=== PATIENT | male | born 1935 | race Caucasian/White ===

== ENCOUNTER → 2020-04-26 | Outpatient (CLI) | payer MEDICARE ==
--- NOTE | 2020-04-26 15:11 | XR ---
EXAMINATION TYPE: XR cervical spine comp DATE OF EXAM: 04/26/2020 TECHNIQUE: Frontal, lateral, oblique, and open mouth view of the cervical spine are obtained. HISTORY: S80.01XA COMPARISON: None FINDINGS: The cervical spine is visualized in its entirety from C1 thru the top of T1 level, there i s dextroconvex scoliosis centered in the upper thoracic spine without evidence of acute fracture or d islocation. The pre-vertebral soft tissue appears within normal limits. The C1-C2 articulation is w ithin normal limits on the open mouth view. Slight grade 1 anterolisthesis C3 on C4 and C4 on C5. Ve rtebral body heights are maintained. Mild to moderate disc space narrowing with severe anterior spurr ing C5-C6 level. Moderate disc space narrowing and mild to moderate spurring C6-C7 level. Suboptimal evaluation C7-T1 level. That acute swimmer's view. The oblique images value degraded by underlying sc oliosis. Overlying clothing material is present. Partial visualization of dual-lead pacemaker noted. IMPRESSION: As above.
== END | disposition home or self-care (01) ==
LOC: RADXRMAIN 14:38
PROVIDERS: ATTEND Internal Medicine Geriatric Medicine
DX: M99.71 Connective tissue and disc stenosis of intervertebral foramina of cervical region (principal); M43.12 Spondylolisthesis, cervical region; M41.84 Other forms of scoliosis, thoracic region; Z95.0 Presence of cardiac pacemaker
CPT/HCPCS: 72050

== ENCOUNTER 2021-02-24 09:20 | Inpatient (IN) | payer MEDICARE ==
[2021-02-24] MEDS ORDERED: KETOROLAC 15 MG/ML 1 ML VIAL IVP STA (10:06)
[2021-02-24] MEDS ORDERED: HYDROmorphone 0.5 MG/0.5 ML SYRINGE IVP STA (10:06)
[2021-02-24] MEDS ORDERED: methylPREDNISolone SOD SUCCI 125 MG/2 ML VIAL IV STA (10:06)
--- NOTE | 2021-02-24 10:16 | ED ---
General Adult HPI - General Chief complaint: Extremity Problem,Nontraumatic Stated complaint: left leg pain Time Seen by Provider: 02/24/21 09:25 Source: patient, EMS, RN notes reviewed, old records reviewed Mode of arrival: EMS Limitations: physical limitation - History of Present Illness Initial comments: This is an 85-year-old male who presents emergency Department complaining of left leg pain. Patient states been ongoing for about a week but getting progressively worse. Patient today bent over but her shoes and socks on and after that he was unable to ambulate without severe pain. Anytime the patient moves his legs he gets severe pain he also complains of some pain in the lower back or sacrum region. Patient denies any recent injury or fall. Patient denies any redness or swelling. Patient denies any fever or chills. - Related Data Home Medications Medication Instructions Recorded Confirmed Lovastatin [Mevacor] 20 mg PO HS 11/12/14 02/24/21 Aspirin EC [Ecotrin Low Dose] 81 mg PO DAILY 02/24/21 02/24/21 Cranberry Fruit Extract [Cranberry] 500 mg PO DAILY 02/24/21 02/24/21 Donepezil [Aricept] 5 mg PO HS 02/24/21 02/24/21 Ergocalciferol [Vitamin D2 (1250 1,250 mcg PO Q14D 02/24/21 02/24/21 Mcg = [id number] Iu)] Lisinopril-Hctz 10-12.5 mg 0.5 tab PO DAILY 02/24/21 02/24/21 [Zestoretic 10-12.5] Lovastatin [Mevacor] 20 mg PO HS 02/24/21 02/24/21 Manganese B-12 1 tab PO DAILY 02/24/21 02/24/21 Tamsulosin HCl [Flomax] 0.4 mg PO DAILY 02/24/21 02/24/21 Vitamin B-12 Gummie 1 tab PO DAILY 02/24/21 02/24/21 metFORMIN HCL 1,000 mg PO BID 02/24/21 02/24/21 Allergies Allergy/AdvReac Type Severity Reaction Status Date / Time No Known Allergies Allergy Verified 02/24/21 10:02 Review of Systems ROS Statement: Those systems with pertinent positive or pertinent negative responses have been documented in the HPI. ROS Other: All systems not noted in ROS Statement are negative. Past Medical History Past Medical History: Diabetes Mellitus, Hyperlipidemia, Osteoarthritis (OA) Additional Past Medical History / Comment(s): hyperlipidemia, diabetes mellitus type 2, osteoarthritis, vitamin D deficiency. History of Any Multi-Drug Resistant Organisms: None Reported Past Surgical History: Hernia Repair Additional Past Surgical History / Comment(s): Right foot surgery secondary to a crush injury, right hernia repair, colonoscopy about 4 years ago, bilateral cataract surgery, right glaucoma surgery with trabeculoplastyX2. Past Anesthesia/Blood Transfusion Reactions: No Reported Reaction Past Psychological History: No Psychological Hx Reported Past Alcohol Use History: None Reported Past Drug Use History: None Reported - Past Family History Father History Unknown: Yes Family Medical History: CVA/TIA (Father had a construction accident back to the age of 50 and he ended up dying at the age of 70 from CVA) Mother History Unknown: Yes Family Medical History: CVA/TIA (Mother at age of 70 from CVA.) Brother(s) Family Medical History: No Reported History (Patient has 3 half-brothers no major medical problems) Daughter(s) Family Medical History: No Reported History (3 daughters no major medical problems.) General Exam - General Exam Comments Initial Comments: GENERAL: Patient is well-developed and well-nourished. Patient is nontoxic and well-hydrated and is in severe distress when he moves his leg. ENT: Neck is soft and supple. No significant lymphadenopathy is noted. Oropharynx is clear. Moist mucous membranes. Neck has full range of motion without eliciting any pain. EYES: The sclera were anicteric and conjunctiva were pink and moist. Extraocular movements were intact and pupils were equal round and reactive to light. Eyelids were unremarkable. PULMONARY: Unlabored respirations. Good breath sounds bilaterally. No audible rales rhonchi or wheezing was noted. CARDIOVASCULAR: There is a regular rate and rhythm without any murmurs gallops or rubs. ABDOMEN: Soft and nontender with normal bowel sounds. SKIN: Skin is clear with no lesions or rashes and otherwise unremarkable. NEUROLOGIC: Patient is alert and oriented x3. Cranial nerves II through XII are grossly intact. Motor and sensory are also intact. Normal speech, volume and content. Symmetrical smile. MUSCULOSKELETAL: When patient tries to either bend his knee or hip he has severe pain and he screams out. However when I passively move his leg is hip or knee does not appear to hurt him. Patient does have some significant tenderness in the lower back and in the sacroiliac region. LYMPHATICS: No significant lymphadenopathy is noted PSYCHIATRIC: Normal psychiatric evaluation. Limitations: physical limitation Course Vital Signs 02/24/21 02/24/21 09:23 11:25 Temperature 98 F Pulse Rate 103 H 70 Respiratory 18 18 Rate Blood Pressure 132/78 131/72 O2 Sat by Pulse 97 96 Oximetry Medical Decision Making - Medical Decision Making Patient received Toradol Dilaudid and Solu-Medrol and his pain was just as bad as it was when he got here. Patient is comfortable lying still but as soon as he moves that left leg at all causes severe pain down the left leg. CAT scan of the lumbar spine showed some spinal stenosis questionable bladder mass and foramen narrowing. I spoke with Dr. Lopez and she agreed to admit I admitted the patient wrote admitting orders - Lab Data Result diagrams: 02/24/21 10:02/24/21 10: Lab Results 02/24/21 02/24/21 Range/Units 10:22 10:22 WBC 5.1 (3.8-10.6) k/uL RBC 4.71 (4.30-5.90) m/uL Hgb 14.4 (13.0-17.5) gm/dL Hct 42.2 (39.0-53.0) % MCV 89.5 (80.0-100.0) fL MCH 30.6 (25.0-35.0) pg MCHC 34.2 (31.0-37.0) g/dL RDW 12.9 (11.5-15.5) % Plt Count 166 (150-450) k/uL MPV 8.0 Neutrophils % 61 % Lymphocytes % 25 % Monocytes % 8 % Eosinophils % 2 % Basophils % 1 % Neutrophils # 3.1 (1.3-7.7) k/uL Lymphocytes # 1.3 (1.0-4.8) k/uL Monocytes # 0.4 (0-1.0) k/uL Eosinophils # 0.1 (0-0.7) k/uL Basophils # 0.0 (0-0.2) k/uL Sodium 136 L (137-145) mmol/L Potassium 4.2 (3.5-5.1) mmol/L Chloride 101 (98-107) mmol/L Carbon Dioxide 26 (22-30) mmol/L Anion Gap 9 mmol/L BUN 19 (9-20) mg/dL Creatinine 1.03 (0.66-1.25) mg/dL Est GFR (CKD-EPI)AfAm 76 (>60 ml/min/1.73 sqM) Est GFR (CKD-EPI)NonAf 66 (>60 ml/min/1.73 sqM) Glucose 150 H (74-99) mg/dL Calcium 9.6 (8.4-10.2) mg/dL Total Bilirubin 0.7 (0.2-1.3) mg/dL AST 27 (17-59) U/L ALT 21 (4-49) U/L Alkaline Phosphatase 59 (38-126) U/L Total Protein 6.6 (6.3-8.2) g/dL Albumin 3.8 (3.5-5.0) g/dL Disposition Clinical Impression: Intractable back pain, Sciatica, Bladder mass Disposition: ADMITTED IP TO THIS HOSP Referrals: Jimmy Lara MD [Primary Care Provider] - 1-2 days Time of Disposition: 12:04
[2021-02-24 10:55] LABS: Albumin 3.8 g/dL (3.5-5.0); Calcium 9.6 mg/dL (8.4-10.2); Potassium 4.2 mmol/L (3.5-5.1); Total Bilirubin 0.7 mg/dL (0.2-1.3); Total Protein 6.6 g/dL (6.3-8.2)
[2021-02-24 11:22] LABS: Basophils % (A) 1 %; Eosinophils # (A) 0.1 k/uL (0-0.7); Eosinophils % (A) 2 %; HCT 42.2 % (39.0-53.0); HGB 14.4 gm/dL (13.0-17.5); Lymphocytes # (A) 1.3 k/uL (1.0-4.8); Lymphocytes % (A) 25 %; MCH 30.6 pg (25.0-35.0); MCHC 34.2 g/dL (31.0-37.0); MCV 89.5 fL (80.0-100.0); Monocytes # (A) 0.4 k/uL (0-1.0); Monocytes % (A) 8 %; Neutrophils # (A) 3.1 k/uL (1.3-7.7); Neutrophils % (A) 61 %; Platelet Count 166 k/uL (150-450); RBC 4.71 m/uL (4.30-5.90); RDW 12.9 % (11.5-15.5); WBC 5.1 k/uL (3.8-10.6)
--- NOTE | 2021-02-24 11:29 | CT ---
EXAMINATION TYPE: CT lumbar spine wo con DATE OF EXAM: 02/24/2021 COMPARISON: None HISTORY: 85-year-old male Severe back and left leg pain TECHNIQUE: Contiguous axial scanning of the lumbar spine without IV contrast. Coronal and sagittal re constructions performed. CT DLP: 1001.9 mGycm Automated exposure control for dose reduction was used. FINDINGS: Vertebral body heights are preserved and alignment is maintained. [id number] multilevel degenerative disc disease. Variable disc bulging. Mild to moderate disc h eight loss at L5-S1. Mild vacuum at both L4-L5 and L5-S1. Endplate Schmorl's nodes are present at both L4-L5 and L5-S1. These may be somewhat acute to subacute along the superior L5 endplate, sagittal image 38. Advanced hypertrophic facet arthropathy throughout. Disc bulge and ligamentum flavum thickening contribute to moderate narrowing of the spinal canal at L 3-L4 and mild at L2-L3. Partially visualized abnormal soft tissue right posterior bladder wall measuring up to 5.2 x 3.0 cm. On the left, there is moderate neuroforaminal narrowing at L4/L5 and L5-S1. Mild additional levels. On the right, there is moderate neuroforaminal narrowing at L4-L5 and L5-S1. Mild additional levels. IMPRESSION: 1. PARTIALLY VISUALIZED MURAL BASED MASS RIGHT POSTERIOR BLADDER WALL MEASURING AT LEAST 5.2 X 3.0 CM . THIS COULD REPRESENT PARTIALLY VISUALIZED SEVERE BPH OR A UROTHELIAL NEOPLASM. RECOMMEND FURTHER CO RRELATION WITH URINALYSIS, URINE CYTOLOGY, AND UROLOGY FOLLOW-UP. 2. MODERATE MULTILEVEL SPONDYLOTIC CHANGE. DISC BULGE AND LIGAMENTUM FLAVUM THICKENING CONTRIBUTES TO MODERATE SPINAL CANAL STENOSIS AT L3-L4 AND MILD AT L2-L3. 3. SMALL ENDPLATE SCHMORL'S NODES AT L4-L5 AND L5-S1. THE AGE OF THESE SCHMORL'S NODES ARE INDETERMIN ATE AND MAY BE SOMEWHAT ACUTE TO SUBACUTE ALONG THE SUPERIOR L5 ENDPLATE. CORRELATE TO THE SITE OF PATIENT'S PAIN. 4. VARIABLE MILD TO MODERATE NEUROFORAMINAL STENOSES IN THE MID AND LOWER LUMBAR SPINE.
[2021-02-24] MEDS: DONEPEZIL 5 MG TAB PO SCH ×2 (13:06→21:37)
[2021-02-24] MEDS: LISINOPRIL-HCTZ 10-12.5 MG 1 EACH TAB PO SCH (13:08)
[2021-02-24] MEDS: HYDROmorphone 0.5 MG/0.5 ML SYRINGE IVP PRN ×3 (13:09→21:37)
[2021-02-24 13:10] LABS: Appearance,Urine Clear (Clear); Bacteria,Urine Rare /hpf; Bilirubin,Urine Negative (Negative); Blood,Urine Trace (Negative); Color,Urine Light Yellow; Glucose,Urine (UA) Negative (Negative); Ketones,Urine 1+ (Negative); Leukocyte Esterase,Urine Negative (Negative); Nitrite,Urine Negative (Negative); Protein,Urine Negative (Negative); RBC,Urine 4 /hpf (0-5); Squamous Epithelial Cell,Urine <1 /hpf (0-4); Urobilinogen,Urine <2.0 mg/dL (<2.0); WBC,Urine <1 /hpf (0-5)
--- NOTE | 2021-02-24 13:57 | P.HPIM ---
History of Present Illness H&P Date: 02/24/21 Chief Complaint: left leg pain HISTORY OF PRESENT ILLNESS This is an 79-year-old male one of Dr. 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 Patient has intermittent nerves pain originating from the back radiating to his thigh but has not been persistent. Patient was in extreme pain 10 out of 10 yesterday evening and decided to come to the ER since she was unable to mobilize or stand without any help. Patient has difficulty rolling in bed due to the extreme pain. Patient has been using cane for the past week. Vitals are stable with a temperature of 98 pulse 86 respiratory rate 18 blood pressure 147/83. Vitals are stable patient's WBC is 5.1 hemoglobin 14.4 sodium 136 potassium 4.2 BUN 19 creatinine 1.03 glucose 150 UA is negative for infection #CT done on 02/24 suggestive of partially visualized mass in the right posterior bladder wall measuring 5.2 and 3 cm which could be suggestive of either severe BPH OR UROTHELIAL neoplasm. Multiple level spondylitic changes disc bulge and ligamentum flavum thickening sec to moderate spinal canal stenosis at L3-L4 and mild at L2-L3 mild small endplate Schmorl's nodes at L4-L5 and L5-S1 which could be acute to subacute along the superior L5 endplate. Mild to moderate neural foraminal stenosis in the mid to lower lumbar spine noted. Patient received Dilaudid, toradol and solumedrol with no improvement. Patient is admitted to help control the pain as it is not controlled with oral medication. We will consult urology, anesthesia group and orthopedic spine to see if any intervention needed to be done. Patient cannot undergo for MRI due to his pacemaker REVIEW OF SYSTEMS Constitutional: No fever, no chills, no night sweats. No weight change. No weakness, fatigue or lethargy. No daytime sleepiness. EENT: No headache. No blurred vision or double vision, no loss of vision. No loss of Hearing, no ringing in the ears, no dizziness. No nasal drainage or congestion. No epistaxis. No sore throat. Lungs: No shortness of breath, cough, no sputum production. No wheezing. Cardiovascular: No chest pain, no lower extremity edema. No palpitations. No paroxysmal nocturnal dyspnea. No orthopnea. No lightheadedness or dizziness. No syncopal episodes. Abdominal: No abdominal pain. No nausea, vomiting. No diarrhea. No constipation. No bloody or tarry stools.. No loss of appetite. Genitourinary: No dysuria, increased frequency, urgency. No urinary retention. Musculoskeletal: No myalgias. No muscle weakness, no gait dysfunction, no frequent falls. No back pain. No neck pain. Integumentary: No wounds, no lesions. No rash or pruritus. No unusual bruising. No change in hair or nails. Neurologic: No aphasia. No facial droop. No change in mentation. No head injury. No headache. No paralysis. No paresthesia. pain in the left lower ext originaing from sacroiliac joint Psychiatric: No depression. No anxiety. No mood swings. Endocrine: No abnormal blood sugars. No weight change. No excessive sweating or thirst. No cold intolerance. SOCIAL HISTORY Nonsmoker nondrinker lives with his FAMILY HISTORY Father had a construction accident back to the age of 50 and he ended up dying at the age of 70 from CVA. Mother at age of 70 from CVA. Patient has 3 half-brothers no major medical problems. He has 3 daughters no major medical problems. PHYSICAL EXAMINATION Gen: This is 85 years old male appears stated age HEENT: Head is atraumatic, normocephalic. Pupils equal, round. Sclerae is anicteric. NECK: Supple. No JVD. No lymphadenopathy. No thyromegaly. LUNGS: Clear to auscultation. No wheezes or rhonchi. No intercostal retractions. HEART: Regular rate and rhythm. No murmur. ABDOMEN: Soft. Bowel sounds are present. No masses. No tenderness. EXTREMITIES: No pedal edema. No calf tenderness. tenderness involving left sacroiliac joint radiating up to lateral thigh no numbness or tingling NEUROLOGICAL: Patient is awake, alert and oriented x3. Cranial nerves 2 through 12 are grossly intact. ASSESSMENT AND PLAN 1. acute sacroiliitis with sciatica status post Toradol, Solu-Medrol and I'll ordered. Continue Toradol 15 IV every 6 hours. Dexamethasone 4 IV every [address] lumbar spine 7 suggestive of multilevel spondylitic changes with disc bulge and ligamentum flavum thickening concerning for moderate spinal stenosis. Orthospine consulted. Pain speciality consulted 2. 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 Patient seen Dr. Leone in the past consult urology for cystoscopy. 3. Third degree heart block status post dual-chamber permanent pacemaker. Stable 4. Hyperlipidemia hold lovastatin 20 mg orally once every day. 5.Diabetes mellitus type 2 hold metformin for the next 48 hours. 6. Hypertension continue lisinopril and hydrochlorothiazide half tablet by mouth daily Vitamin D deficiency continue Drisdol 50,000 units once every 2 weeks. 7. BPH continue tamsulosin 0.4 mg by mouth daily 8. Mild dementia continue Aricept 5 mg at bedtime 9. GI prophylaxis with Pepcid 20 mg by mouth daily. 10. DVT prophylaxis with heparin every 12 11. CODE STATUS full code confirmed with family 12. COVID-19 testing negative. Patient has been hospitalized during a pandemic. Patient will be admitted to the hospital for a minimum of 2 night stay. DISCHARGE PLAN TBD. PT . Past Medical History Past Medical History: Diabetes Mellitus, Hyperlipidemia, Osteoarthritis (OA) Additional Past Medical History / Comment(s): hyperlipidemia, diabetes mellitus type 2, osteoarthritis, vitamin D deficiency. History of Any Multi-Drug Resistant Organisms: None Reported Past Surgical History: Hernia Repair Additional Past Surgical History / Comment(s): Right foot surgery secondary to a crush injury, right hernia repair, colonoscopy about 4 years ago, bilateral cataract surgery, right glaucoma surgery with trabeculoplastyX2. Past Anesthesia/Blood Transfusion Reactions: No Reported Reaction Past Psychological History: No Psychological Hx Reported Past Alcohol Use History: None Reported Past Drug Use History: None Reported - Past Family History Father History Unknown: Yes Family Medical History: CVA/TIA (Father had a construction accident back to the age of 50 and he ended up dying at the age of 70 from CVA) Mother History Unknown: Yes Family Medical History: CVA/TIA (Mother at age of 70 from CVA.) Brother(s) Family Medical History: No Reported History (Patient has 3 half-brothers no major medical problems) Daughter(s) Family Medical History: No Reported History (3 daughters no major medical problems.) Medications and Allergies Home Medications Medication Instructions Recorded Confirmed Type Lovastatin [Mevacor] 20 mg PO HS 11/12/14 02/24/21 History Aspirin EC [Ecotrin Low Dose] 81 mg PO DAILY 02/24/21 02/24/21 History Cranberry Fruit Extract [Cranberry] 500 mg PO DAILY 02/24/21 02/24/21 History Donepezil [Aricept] 5 mg PO HS 02/24/21 02/24/21 History Ergocalciferol [Vitamin D2 (1250 1,250 mcg PO Q14D 02/24/21 02/24/21 History Mcg = 20261 Iu)] Lisinopril-Hctz 10-12.5 mg 0.5 tab PO DAILY 02/24/21 02/24/21 History [Zestoretic 10-12.5] Lovastatin [Mevacor] 20 mg PO HS 02/24/21 02/24/21 History Manganese B-12 1 tab PO DAILY 02/24/21 02/24/21 History Tamsulosin HCl [Flomax] 0.4 mg PO DAILY 02/24/21 02/24/21 History Vitamin B-12 Gummie 1 tab PO DAILY 02/24/21 02/24/21 History metFORMIN HCL 1,000 mg PO BID 02/24/21 02/24/21 History Allergies Allergy/AdvReac Type Severity Reaction Status Date / Time No Known Allergies Allergy Verified 02/24/21 10:02 Physical Exam Vitals: Vital Signs Temp Pulse Resp BP Pulse Ox 02/24/21 13:10 86 18 147/83 92 L 02/24/21 12:43 80 18 147/89 98 02/24/21 11:25 70 18 131/72 96 02/24/21 09:23 98 F 103 H 18 132/78 97 Intake and Output 02/23/21 02/24/21 02/24/21 22:59 06:59 14:59 Other: Weight 88.451 kg Results CBC & Chem 7: 02/24/21 10:22 02/24/21 10:22 Labs: Abnormal Lab Results - Last 24 Hours (Table) 02/24/21 02/24/21 Range/Units 10:22 12:41 Sodium 136 L (137-145) mmol/L Glucose 150 H (74-99) mg/dL Urine Ketones 1+ H (Negative) Urine Blood Trace H (Negative) Urine Bacteria Rare H (None) /hpf
--- NOTE | 2021-02-24 14:12 | P.GSCN ---
History of Present Illness Consult date: 02/24/21 Reason for Consult: Abnormal computed tomography scan of the bladder History of present illness: The patient is 85. He came in the hospital because of persistent back pain and foot pain. He has sciatica. He had a computed tomography scan of the lumbosacral spine identifying significant lumbosacral disease including disc disease. The bladder portion of the computed tomography scan showed a possible mass in the right floor the bladder. The patient urinalysis only showed 4 red blood cells. He denies difficulty voiding. Apparently he had an elevated PSA in the past and was seen by urologist at which she does not remember who. He st arted taking some medicine and his whole situation improved. He denies gross hematuria. He denies difficulty urination however I'm not sure how reliable that is. He does have urgency to the point of incontinence. No previous urologic instrumentation. He is on tamsulosin. Review of Systems All systems: negative Past Medical History Past Medical History: Diabetes Mellitus, Hyperlipidemia, Osteoarthritis (OA) Additional Past Medical History / Comment(s): hyperlipidemia, diabetes mellitus type 2, osteoarthritis, vitamin D deficiency. History of Any Multi-Drug Resistant Organisms: None Reported Past Surgical History: Hernia Repair Additional Past Surgical History / Comment(s): Right foot surgery secondary to a crush injury, right hernia repair, colonoscopy about 4 years ago, bilateral cataract surgery, right glaucoma surgery with trabeculoplastyX2. Past Anesthesia/Blood Transfusion Reactions: No Reported Reaction Past Psychological History: No Psychological Hx Reported Past Alcohol Use History: None Reported Past Drug Use History: None Reported - Past Family History Father History Unknown: Yes Family Medical History: CVA/TIA (Father had a construction accident back to the age of 50 and he ended up dying at the age of 70 from CVA) Mother History Unknown: Yes Family Medical History: CVA/TIA (Mother at age of 70 from CVA.) Brother(s) Family Medical History: No Reported History (Patient has 3 half-brothers no major medical problems) Daughter(s) Family Medical History: No Reported History (3 daughters no major medical problems.) Medications and Allergies Home Medications Medication Instructions Recorded Confirmed Type Lovastatin [Mevacor] 20 mg PO HS 11/12/14 02/24/21 History Aspirin EC [Ecotrin Low Dose] 81 mg PO DAILY 02/24/21 02/24/21 History Cranberry Fruit Extract [Cranberry] 500 mg PO DAILY 02/24/21 02/24/21 History Donepezil [Aricept] 5 mg PO HS 02/24/21 02/24/21 History Ergocalciferol [Vitamin D2 (1250 1,250 mcg PO Q14D 02/24/21 02/24/21 History Mcg = 09952 Iu)] Lisinopril-Hctz 10-12.5 mg 0.5 tab PO DAILY 02/24/21 02/24/21 History [Zestoretic 10-12.5] Lovastatin [Mevacor] 20 mg PO HS 02/24/21 02/24/21 History Manganese B-12 1 tab PO DAILY 02/24/21 02/24/21 History Tamsulosin HCl [Flomax] 0.4 mg PO DAILY 02/24/21 02/24/21 History Vitamin B-12 Gummie 1 tab PO DAILY 02/24/21 02/24/21 History metFORMIN HCL 1,000 mg PO BID 02/24/21 02/24/21 History Allergies Allergy/AdvReac Type Severity Reaction Status Date / Time No Known Allergies Allergy Verified 02/24/21 10:02 Surgical - Exam Vital Signs Temp Pulse Resp BP Pulse Ox 98 F 103 H 18 132/78 97 02/24/21 09:23 02/24/21 09:23 02/24/21 09:23 02/24/21 09:23 02/24/21 09:23 - General well developed, well nourished, no distress - Eyes PERRL - ENT no hearing loss - Neck no masses, trachea midline - Respiratory normal expansion, normal respiratory effort - Cardiovascular Rhythm: regular - Abdomen Abdomen: soft, non tender - Genitourinary The prostate is quite enlarged greater than 50 g and benign. normal penis with no external lesions, testicles present - Rectum Rectum: normal sphincter tone - Integumentary no rash, no growths - Musculoskeletal normal posture - Psychiatric oriented to time, oriented to person, oriented to place, speech is normal, memory intact Results - Labs 02/24/21 10:22 02/24/21 10:22 Abnormal Lab Results - Last 24 Hours (Table) 02/24/21 02/24/21 Range/Units 10: 12:41 Sodium 136 L (137-145) mmol/L Glucose 150 H (74-99) mg/dL Urine Ketones 1+ H (Negative) Urine Blood Trace H (Negative) Urine Bacteria Rare H (None) /hpf Diabetes panel 02/24/21 Range/Units 10:22 Sodium 136 L (137-145) mmol/L Potassium 4.2 (3.5-5.1) mmol/L Chloride 101 (98-107) mmol/L Carbon Dioxide 26 (22-30) mmol/L BUN 19 (9-20) mg/dL Creatinine 1.03 (0.66-1.25) mg/dL Glucose 150 H (74-99) mg/dL Calcium 9.6 (8.4-10.2) mg/dL AST 27 (17-59) U/L ALT 21 (4-49) U/L Alkaline Phosphatase 59 (38-126) U/L Total Protein 6.6 (6.3-8.2) g/dL Albumin 3.8 (3.5-5.0) g/dL Calcium panel 02/24/21 Range/Units 10:22 Calcium 9.6 (8.4-10.2) mg/dL Albumin 3.8 (3.5-5.0) g/dL Pituitary panel 02/24/21 Range/Units 10:22 Sodium 136 L (137-145) mmol/L Potassium 4.2 (3.5-5.1) mmol/L Chloride 101 (98-107) mmol/L Carbon Dioxide 26 (22-30) mmol/L BUN 19 (9-20) mg/dL Creatinine 1.03 (0.66-1.25) mg/dL Glucose 150 H (74-99) mg/dL Calcium 9.6 (8.4-10.2) mg/dL Adrenal panel 02/24/21 Range/Units 10:22 Sodium 136 L (137-145) mmol/L Potassium 4.2 (3.5-5.1) mmol/L Chloride 101 (98-107) mmol/L Carbon Dioxide 26 (22-30) mmol/L BUN 19 (9-20) mg/dL Creatinine 1.03 (0.66-1.25) mg/dL Glucose 150 H (74-99) mg/dL Calcium 9.6 (8.4-10.2) mg/dL Total Bilirubin 0.7 (0.2-1.3) mg/dL AST 27 (17-59) U/L ALT 21 (4-49) U/L Alkaline Phosphatase 59 (38-126) U/L Total Protein 6.6 (6.3-8.2) g/dL Albumin 3.8 (3.5-5.0) g/dL - Imaging CT scan - pelvis: report reviewed, image reviewed Assessment and Plan Assessment: Impression: Intractable back pain related to the lumbosacral spine disease. Abnormal x-ray of bladder rule out mass Recommendations: My guess is this is just the enlargement of the prostate approaching on the trigone of the bladder. With his large prostate on examination, his use of tamsulosin and his urinary urgency I suspect this is the case however he would benefit from cystoscopy to rule out intravesical pathology as an outpatient. He should be seen by me upon discharge.
[2021-02-24] MEDS: KETOROLAC 15 MG/ML 1 ML VIAL IVP SCH ×2 (15:09→18:18)
[2021-02-24] MEDS: DEXAMETHASONE SOD PHOSPHATE 4 MG/ML 1 ML VIAL IV SCH ×2 (15:10→18:19)
[2021-02-24] MEDS: FAMOTIDINE 20 MG TAB PO SCH (15:11)
[2021-02-24] MEDS: ATORVASTATIN 10 MG TAB PO SCH (21:37)
[2021-02-25] MEDS: DEXAMETHASONE SOD PHOSPHATE 4 MG/ML 1 ML VIAL IV SCH ×4 (00:47→18:01)
[2021-02-25] MEDS: KETOROLAC 15 MG/ML 1 ML VIAL IVP SCH ×4 (00:47→18:00)
[2021-02-25] MEDS: HYDROmorphone 0.5 MG/0.5 ML SYRINGE IVP PRN (06:58)
[2021-02-25] MEDS: LISINOPRIL-HCTZ 10-12.5 MG 1 EACH TAB PO SCH (08:15)
[2021-02-25] MEDS: FAMOTIDINE 20 MG TAB PO SCH (08:16)
[2021-02-25] MEDS: TAMSULOSIN 0.4 MG CAP.ER.24H PO SCH (08:16)
[2021-02-25] MEDS: CYANOCOBALAMIN 500 MCG TAB PO SCH (08:16)
[2021-02-25] MEDS ORDERED: [UNRECOGNIZED DRUG - OTHER] PO SCH (09:00)
[2021-02-25] MEDS ORDERED: predniSONE 20 MG TAB PO SCH (09:00)
--- NOTE | 2021-02-25 09:20 | P.CNOR ---
History of Present Illness - [facility] Consult date: 02/25/21 Requesting physician: Maricel Lopez Consult reason: other (Left lower extremity radiculopathy and difficulty with a mbulation) History of present illness: Patient is a very pleasant 85-year-old male who is seen and examined at bedside for further evaluation in regards to his lumbar spine. He states over the past 3 days he's had significant pain with his left lower extremity. He does have some left sacroiliac joint pain with pain radiating down the entire left lower extremity. His left lower extremity radiculopathy is controlled at rest. He has difficulty lifting his left leg as it exacerbates his pain. He states yesterday he tried to stand on his left lower extremity and his left leg gave out on him causing him to fall to the ground. He was unable to stand. He was brought to the hospital for further evaluation by EMS to the emergency department. He denies any right lower extremity radiculopathy. He denies specific left lower extremity weakness but states he is unable to ambulate well on his left lower extremity due to pain. He denies any injuries. Consultation has been placed with pain management. Patient states she would like to avoid surgical intervention. He is continues to be seen and examined by medicine. Patient does have a history of diabetes mellitus type 2, hyperlipidemia, hypertension, osteoarthritis, and history of complete heart block in 2015 status post pacemaker placement. He is unable to have MRI imaging due to his pacemaker. He has had lumbar CT imaging performed. A lumbar CT imaging did show evidence of a partially visualized mass in the right posterior bladder wall. He has been seen by urology who is planning for outpatient cystoscopy. Patient does admit to difficulty with his prostate previously. He states he was able to void this morning without difficulty. Past Medical History Past Medical History: Diabetes Mellitus, Hyperlipidemia, Osteoarthritis (OA) Additional Past Medical History / Comment(s): hyperlipidemia, diabetes mellitus type 2, osteoarthritis, vitamin D deficiency. History of Any Multi-Drug Resistant Organisms: None Reported Past Surgical History: Hernia Repair Additional Past Surgical History / Comment(s): Right foot surgery secondary to a crush injury, right hernia repair, colonoscopy about 4 years ago, bilateral cataract surgery, right glaucoma surgery with trabeculoplastyX2. Past Anesthesia/Blood Transfusion Reactions: No Reported Reaction Past Psychological History: No Psychological Hx Reported Smoking Status: Never smoker Past Alcohol Use History: None Reported Past Drug Use History: None Reported - Past Family History Father History Unknown: Yes Family Medical History: CVA/TIA Mother History Unknown: Yes Family Medical History: CVA/TIA Brother(s) Family Medical History: No Reported History Daughter(s) Family Medical History: No Reported History Medications and Allergies Home Medications Medication Instructions Recorded Confirmed Type Lovastatin [Mevacor] 20 mg PO HS 11/12/14 02/24/21 History Aspirin EC [Ecotrin Low Dose] 81 mg PO DAILY 02/24/21 02/24/21 History Cranberry Fruit Extract [Cranberry] 500 mg PO DAILY 02/24/21 02/24/21 History Donepezil [Aricept] 5 mg PO HS 02/24/21 02/24/21 History Ergocalciferol [Vitamin D2 (1250 1,250 mcg PO Q14D 02/24/21 02/24/21 History Mcg = 34399 Iu)] Lisinopril-Hctz 10-12.5 mg 0.5 tab PO DAILY 02/24/21 02/24/21 History [Zestoretic 10-12.5] Lovastatin [Mevacor] 20 mg PO HS 02/24/21 02/24/21 History Manganese B-12 1 tab PO DAILY 02/24/21 02/24/21 History Tamsulosin HCl [Flomax] 0.4 mg PO DAILY 02/24/21 02/24/21 History Vitamin B-12 Gummie 1 tab PO DAILY 02/24/21 02/24/21 History metFORMIN HCL 1,000 mg PO BID 02/24/21 02/24/21 History Allergies Allergy/AdvReac Type Severity Reaction Status Date / Time No Known Allergies Allergy Verified 02/24/21 10:02 Physical Examination Physical exam: Patient is awake, alert, and oriented 3 Vital signs stable Good chest excursion with deep inspiration and expiration Examination of lumbar spine reveals skin is intact with no abrasions, lacerations, or bruises; no erythema, purulence or signs of infection Mild pain with palpation of the left sacroiliac joint Dorsiflexion, plantarflexion, and extensor hallucis longus positive sustained bilaterally Lower extremity strength 5/5 bilaterally except for difficulty lifting the left lower extremity off the bed with hip flexion and some difficulty with knee flexion on the left Patellar reflex 4+ on the right and 0+ on the left; Achilles reflexes 0+ bilaterally Right lower extremity hyperreflexia at the patella Straight leg test negative positive on the left Negative Lasegue's test positive on the left No signs or symptoms of DVT; no calf pain No pain with internal and external rotation of the hips bilaterally Neurovascularly intact Results Pertinent studies: CT lumbar spine taken on 02/24/2021: No evidence of vertebral body compression fracture; overall alignment appeared to be adequately maintained; advanced facet hypertrophy throughout the lumbar spine; L2-3 and L3-4 spinal canal stenosis; L4-5 vacuum disc phenomenon and moderate bilateral neuroforaminal narrowing; L5- S1 moderate degenerative disc disease, vacuum disc phenomenon, and moderate bilateral neural foraminal stenosis - Labs Labs: Abnormal Lab Results - Last 24 Hours (Table) 02/24/21 02/24/21 Range/Units 10:22 12:41 Sodium 136 L (137-145) mmol/L Glucose 150 H (74-99) mg/dL Urine Ketones 1+ H (Negative) Urine Blood Trace H (Negative) Urine Bacteria Rare H (None) /hpf H & H 02/24/21 Range/Units 10:22 Hgb 14.4 (13.0-17.5) gm/dL Hct 42.2 (39.0-53.0) % Result Diagrams: 02/24/21 10:22 02/24/21 10:22 Assessment and Plan Assessment: Assessment: Left-sided sacroiliac joint pain Left lower extremity radiculopathy Difficulty with ambulation the left lower extremity due to pain Advanced lumbar facet arthropathy L2-3 and L3-4 spinal canal stenosis L4-5 and L5-S1 foraminal stenosis Lumbosacral degenerative disc disease Partially visualized mass in the right posterior bladder wall History of difficulty with prostate Diabetes mellitus type 2 Hyperlipidemia Hypertension Osteoarthritis History of complete heart block Pacemaker placement (1) Sacroiliac joint pain Current Visit: Yes Status: Acute Code(s): M53.3 - SACROCOCCYGEAL DISORDERS, NOT ELSEWHERE CLASSIFIED SNOMED Code(s): 949753567 (2) Lumbar back pain with radiculopathy affecting left lower extremity Current Visit: Yes Status: Acute Code(s): M54.16 - RADICULOPATHY, LUMBAR REGION SNOMED Code(s): 635445731 (3) Lumbar facet arthropathy Current Visit: Yes Status: Acute Code(s): M47.816 - SPONDYLOSIS W/O MYELO VIRI OR RADICULOPATHY, LUMBAR REGION SNOMED Code(s): 302556553 (4) Lumbar stenosis Current Visit: Yes Status: Acute Code(s): M48.061 - SPINAL STENOSIS, LUMBAR REGION WITHOUT NEUROGENIC NHI SNOMED Code(s): 11555183 (5) Hypertension Current Visit: Yes Status: Acute Code(s): I10 - ESSENTIAL (PRIMARY) HYPERTENSION SNOMED Code(s): 63048436 (6) History of heart block Current Visit: Yes Status: Acute Code(s): Z86.79 - PERSONAL HISTORY OF OTHER DISEASES OF THE CIRCULATORY SYSTEM SNOMED Code(s): 301703921643785 (7) Pacemaker Current Visit: Yes Status: Acute Code(s): Z95.0 - PRESENCE OF CARDIAC PACEMAKER SNOMED Code(s): 050049201 (8) Bladder mass Current Visit: Yes Status: Acute Code(s): N32.89 - OTHER SPECIFIED DISORDERS OF BLADDER SNOMED Code(s): 754226165 (9) Intractable back pain Current Visit: Yes Status: Acute Code(s): M54.9 - DORSALGIA, UNSPECIFIED SNOMED Code(s): 349962184 (10) Sciatica Current Visit: Yes Status: Acute Code(s): M54.30 - SCIATICA, UNSPECIFIED SIDE SNOMED Code(s): 03119438 (11) Diabetes Current Visit: No Status: Acute Code(s): E11.9 - TYPE 2 DIABETES MELLITUS WITHOUT COMPLICATIONS SNOMED Code(s): 23785770 (12) Hyperlipemia Current Visit: No Status: Acute Code(s): E78.5 - HYPERLIPIDEMIA, UNSPECIFIED SNOMED Code(s): 40397724 Plan: Plan: 1. Rashawn has been experiencing significant left lower extremity radiculopathy which she states has been ongoing over the past 3 days without difficulty. He's had difficulty ambulating on his left lower extremity due to his pain. He states yesterday he fell to the ground due to his left leg pain he was unable to ambulate. He was brought to the hospital for further evaluation. CT imaging does show significant degenerative changes at his lumbar spine. He is currently receiving multiple medications for pain control including Dilaudid and Toradol. He is currently waiting for consultation with pain management. He does have difficulty describing the exact pattern of pain down the left lower extremity but states the pain does radiate down the entire left lower extremity with increased activity with his left lower extremity and ambulation. At this time, we did discuss his symptoms have been ongoing for only a few days and we recommend conservative treatment options to see if his symptoms are able to improve. Patient states surgery would be his last option he would currently like to avoid any surgical intervention. We discussed we would plan to continue with medications as prescribed by medicine. We will also recommend the consultation with pain management for further evaluation and discuss further treatment options including the possibility of injections. We will plan have the patient follow-up in the outpatient setting in approximately 2-3 weeks for further evaluation. He is encouraged to continue using a walker to aid in ambulation as needed. He is encouraged to work with physical therapy. Patient may follow-up with Nathaniel De Leon PA-C or Dr. Dread Flores at [facility] in 2-3 weeks following discharge. 2. Patient currently waiting for consultation with pain management 3. Patient will plan to follow with Dr. Reece in the outpatient setting for further treatment evaluation regards to his prostate; dictation states would plan for outpatient cystoscopy 4. Patient will continue to be seen and examined by medicine; continue medications for pain control as prescribed by medicine Time with Patient: Greater than 30 (Including obtaining history, physical examination, reviewing of imaging, and dictation.)
[2021-02-25 10:32] LABS: Glucose,Whole Blood 187 mg/dL (75-99)
[2021-02-25] MEDS ORDERED: fentaNYL (PF) 50 MCG/ML 2 ML AMP ONE (10:56)
[2021-02-25] MEDS ORDERED: IOPAMIDOL M200 10 ML VIAL ONE (10:56)
[2021-02-25] MEDS ORDERED: LIDOCAINE 1% INJ 10MG/ML (20 ML MDV) ONE (10:56)
[2021-02-25] MEDS ORDERED: methylPREDNISolone ACETATE 40 MG/ML 1 ML VIAL ONE (10:56)
[2021-02-25] MEDS ORDERED: LACTATED RINGERS 1,000 ML IV SCH (11:15)
--- NOTE | 2021-02-25 11:18 | P.PCN ---
Date of Procedure: 02/25/21 Description of Procedure: Procedure: 1. L5-S1 Epidural steroid injection under fluoroscopic guidance #1, 2. Lumbar epidurogram PREOPERATIVE DIAGNOSIS: Lumbar degenerative disc disease, and Lumbar radiculopathy. POSTOPERATIVE DIAGNOSIS: Lumbar degenerative disc disease, and Lumbar radic ulopathy. SURGEON: Steph Quintana ANESTHESIA: Local with 1% lidocaine, and IV sedation as per anesthesia record EBL: None. Specimen removed: None Fluoroscopic image: saved to electronic medical records PROCEDURE INDICATION: The patient had history of Lumbar degenerative disc disease and Lumbar radiculopathy. Failed to conservative therapy. Presented for epidural steroid injection. PROCEDURE DESCRIPTION: The patient was seen and identified in the preoperative area. Risks, benefits, complications, and alternatives were discussed with the patient. The patient agreed to proceed with the procedure and signed the consent. IV was started, and vital signs were stable. Patient was taken to the procedure area, and time out was completed. The patient was placed in the prone position on procedure table and a pillow was placed under the abdomen to reduce lumbar lordosis. The lumbosacral area was prepped and draped in the usual sterile fashion. Critical pause was taken. Vital signs were closely monitored during the procedure. Using anterior-posterior fluoroscopy, the L5 - S1 interlaminar space was identified, and skin and deeper tissues were localized with 1% lidocaine. Using anterior-posterior fluoroscopy, lateral fluoroscopy, and [id number] technique, a 20 gauge 3.5 Tuohy epidural needle entered the epidural space. After negative aspiration of CSF and blood with no paresthesias, 1 ml of [id number] contrast dye was injected and an excellent epidurogram was seen. Again after negative aspiration of CSF and blood with no paresthesias, 10 mL of block solution was injected into the epidural space. Block solution contained 3 mL of 1% lidocaine , 80 mg of Depo-Medrol, and 6 mL of preservative-free normal saline. Needle was withdrawn intact, skin was cleansed, and bandages were applied. COMPLICATIONS: None. DISPOSITION / PLANS: The patient was placed in a supine position and transferred to the recovery area in a stable condition for observation. Patient was disch arged from the recovery room after meeting discharge criteria. Home discharge instructions given to the patient by the staff. The patient was reexamined prior to discharge. The patient will schedule a follow up in the clinic in 4 weeks.
--- NOTE | 2021-02-25 11:26 | FL ---
EXAMINATION TYPE: FL guided pain mgmt statistic DATE OF EXAM: 02/25/2021 CLINICAL HISTORY: Low back pain. TECHNIQUE: Fluoroscopy. COMPARISON: None. FINDINGS: Fluoroscopic guidance was provided during pain relief procedure performed by Dr. Quintana . A total of 6 seconds of fluoroscopic time was utilized during the procedure and two spot images are acquired. Images acquired shows needle localization with contrast injection at level of lumbosacral junction. IMPRESSION: As Above.
[2021-02-25] MEDS: LACTATED RINGERS 1,000 ML IV SCH (13:39)
[2021-02-25] MEDS: DONEPEZIL 5 MG TAB PO SCH (20:46)
[2021-02-25] MEDS: ATORVASTATIN 10 MG TAB PO SCH (20:46)
[2021-02-26] MEDS: DEXAMETHASONE SOD PHOSPHATE 4 MG/ML 1 ML VIAL IV SCH ×3 (00:42→12:57)
[2021-02-26] MEDS: KETOROLAC 15 MG/ML 1 ML VIAL IVP SCH ×3 (00:43→12:57)
[2021-02-26 04:45] VITALS: RESP 18; TEMP 98.2
[2021-02-26] MEDS: HYDROmorphone 0.5 MG/0.5 ML SYRINGE IVP PRN ×2 (04:49→09:10)
--- NOTE | 2021-02-26 07:52 | P.PN ---
Subjective Progress Note Date: 02/25/21 HISTORY OF PRESENT ILLNESS This is an 79-year-old male one of Dr. 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 Patient has intermittent nerves pain originating from the back radiating to his thigh but has not been persistent. Patient was in extreme pain 10 out of 10 yesterday evening and decided to come to the ER since she was unable to mobilize or stand without any help. Patient has difficulty rolling in bed due to the extreme pain. Patient has been using cane for the past week. Vitals are stable with a temperature of 98 pulse 86 respiratory rate 18 blood pressure 147/83. Vitals are stable patient's WBC is 5.1 hemoglobin 14.4 sodium 136 potassium 4.2 BUN 19 creatinine 1.03 glucose 150 UA is negative for infection #CT done on 02/24 suggestive of partially visualized mass in the right posterior bladder wall measuring 5.2 and 3 cm which could be suggestive of either severe BPH OR UROTHELIAL neoplasm. Multiple level spondylitic changes disc bulge and ligamentum flavum thickening sec to moderate spinal canal stenosis at L3-L4 and mild at L2-L3 mild small endplate Schmorl's nodes at L4-L5 and L5-S1 which could be acute to subacute along the superior L5 endplate. Mild to moderate neural foraminal stenosis in the mid to lower lumbar spine noted. Patient received Dilaudid, toradol and solumedrol with no improvement. Patient is admitted to help control the pain as it is not controlled with oral medication. We will consult urology, anesthesia group and orthopedic spine to see if any intervention needed to be done. Patient cannot undergo for MRI due to his pacemaker 02/25: The patient has been seen by pain management and is status post L5-S1 epidural steroid injection. He is just returning from procedure at this time. His is at bedside. PT has not evaluated him at this time and we'll plan for evaluation prior to discharge. Patient is to have follow-up with orthopedic spine in 3 weeks. Patient has been seen by Dr. Reece and most likely this is enlargement of the prostate and patient could benefit from cystoscopy to rule out intravesical pathology as an outpatient. Patient will follow-up in the office. REVIEW OF SYSTEMS Constitutional: No fever, no chills, no night sweats. No weight change. No weakness, fatigue or lethargy. No daytime sleepiness. EENT: No headache. No blurred vision or double vision, no loss of vision. No loss of Hearing, no ringing in the ears, no dizziness. No nasal drainage or congestion. No epistaxis. No sore throat. Lungs: No shortness of breath, cough, no sputum production. No wheezing. Cardiovascular: No chest pain, no lower extremity edema. No palpitations. No paroxysmal nocturnal dyspnea. No orthopnea. No lightheadedness or dizziness. No syncopal episodes. Abdominal: No abdominal pain. No nausea, vomiting. No diarrhea. No constipation. No bloody or tarry stools.. No loss of appetite. Genitourinary: No dysuria, increased frequency, urgency. No urinary retention. Musculoskeletal: No myalgias. No muscle weakness, no gait dysfunction, no frequent falls. No back pain. No neck pain. Integumentary: No wounds, no lesions. No rash or pruritus. No unusual bruising. No change in hair or nails. Neurologic: No aphasia. No facial droop. No change in mentation. No head injury. No headache. No paralysis. No paresthesia. pain in the left lower ext originaing from sacroiliac joint Psychiatric: No depression. No anxiety. No mood swings. Endocrine: No abnormal blood sugars. PHYSICAL EXAMINATION Gen: This is 85 years old male resting in bed, patient's is at bedside HEENT: Head is atraumatic, normocephalic. Pupils equal, round. Sclerae is anicteric. NECK: Supple. No JVD. No lymphadenopathy. No thyromegaly. LUNGS: Clear to auscultation. No wheezes or rhonchi. No intercostal retractions. HEART: Regular rate and rhythm. No murmur. ABDOMEN: Soft. Bowel sounds are present. No masses. No tenderness. EXTREMITIES: No pedal edema. No calf tenderness. tenderness involving left sacroiliac joint radiating up to lateral thigh no numbness or tingling NEUROLOGICAL: Patient is awake, alert and oriented x3. Cranial nerves 2 through 12 are grossly intact. ASSESSMENT AND PLAN 1. Acute sacroiliitis with sciatica status post Toradol, Solu-Medrol and I'll ordered. Continue Toradol 15 IV every 6 hours. Dexamethasone 4 IV every [address] lumbar spine 7 suggestive of multilevel spondylitic changes with disc bulge and ligamentum flavum thickening concerning for moderate spinal stenosis. Orthospine consulted. Pain speciality consulted and patient is status post steroid injection, L5/S1 epidural steroid injection. Patient is cleared from pain management for discharge. We'll plan for PT to evaluate prior to discharge. 2. 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 Patient seen Dr. Leone in the past consult urology for cystoscopy as an outpatient. 3. Third degree heart block status post dual-chamber permanent pacemaker. Stable 4. Hyperlipidemia hold lovastatin 20 mg orally once every day. 5. Diabetes mellitus type 2 hold metformin for the next 48 hours. 6. Hypertension continue lisinopril and hydrochlorothiazide half tablet by mouth daily Vitamin D deficiency continue Drisdol 50,000 units once every 2 weeks. 7. BPH continue tamsulosin 0.4 mg by mouth daily 8. Mild dementia continue Aricept 5 mg at bedtime 9. GI prophylaxis with Pepcid 20 mg by mouth daily. 10. DVT prophylaxis with heparin every 12 11. CODE STATUS full code confirmed with family 12. COVID-19 testing negative. Patient has been hospitalized during a pandemic. DISCHARGE PLAN TBD. PT Impression and plan of care have been directed as dictated by the signing physician. Khushi Navarrete nurse practitioner acting as scribe for signing physician. Objective - Vital Signs Vital signs: Vital Signs Temp 97.9 F 02/25/21 11:34 Pulse 90 02/25/21 11:34 Resp 16 02/25/21 11:34 BP 130/66 02/25/21 11:34 Pulse Ox 95 02/25/21 11:34 Intake & Output 02/24/21 02/25/21 02/25/21 18:59 06:59 18:59 Intake Total 375 Output Total 450 Balance -450 375 Weight 88.451 kg Intake: Oral 375 Output: Urine 350 Stool 100 Other: Voiding Method Urinal Urinal # Voids 2 - Labs CBC & Chem 7: 02/24/21 10:22 02/24/21 10:22 Labs: Abnormal Lab Results - Last 24 Hours (Table) 02/25/21 Range/Units 10:30 POC Glucose (mg/dL) 187 H (75-99) mg/dL
[2021-02-26] MEDS: FAMOTIDINE 20 MG TAB PO SCH (09:06)
[2021-02-26] MEDS: LISINOPRIL-HCTZ 10-12.5 MG 1 EACH TAB PO SCH (09:06)
[2021-02-26] MEDS: CYANOCOBALAMIN 500 MCG TAB PO SCH (09:06)
[2021-02-26] MEDS: TAMSULOSIN 0.4 MG CAP.ER.24H PO SCH (09:07)
--- NOTE | 2021-02-26 11:22 | P.PAINCN ---
History of Present Illness - Reason for Consult Consult date: 02/25/21 Back pain, and foot pain - Chief Complaint Back pain, and lower extremity pain - History of Present Illness Mr. Ferrer is a 85-year-old pleasant male was consulted in hospital for evaluation, and lumbar epidural procedure note for his acute on chronic low back pain, and pain radiating to bilateral lower extremity. As per patient has ongoing chronic low back pain for many years. But lately his pain is getting worse. His pain started 2 days before the hospitalization while he was moving. Today he rated his pain 9-10 out of 10 in severity. His pain across the lower back, and sacroiliac joint area. More worse on the left side and by the right side. With the help of current pain medications his pain levels are 7-8 out of 10 in severity. As per patient he is active at home as tolerated. At this time activities making his pain worse. Pain medications helping to some extent in re lieving his pain. Because of pain is complaining interact with him, and not having a good quality of life. Sometimes he has a hard time sleeping secondary to pain. Patient denied any fever, bowel, bladder problems, recent weight loss. Computed tomography scan of the lumbar spine done on 02/24/2021 showed, moderate multilevel spondylitic changes. Disc bulge, and ligamentum flavum thickening contributes to moderate spinal canal stenosis at L3-L4, and mild at L2-L3. Small endplate Schmorl's nodes at L4-L5, and L5-S1. Review of Systems All systems: negative Constitutional: Denies chills, Denies fever Eyes: denies blurred vision, denies pain Ears, nose, mouth and throat: Denies headache, Denies sore throat Cardiovascular: Denies chest pain, Denies shortness of breath Respiratory: Denies cough Gastrointestinal: Denies abdominal pain, Denies diarrhea, Denies nausea, Denies vomiting Musculoskeletal: Reports leg numbness/tingling, Reports limitation of motion, Reports low back pain, Reports muscle weakness, Reports myalgias Integumentary: Denies pruritus, Denies rash Neurological: Denies numbness, Denies weakness Psychiatric: Denies anxiety, Denies depression Endocrine: Denies fatigue, Denies weight change Past Medical History Past Medical History: Diabetes Mellitus, Hyperlipidemia, Osteoarthritis (OA) Additional Past Medical History / Comment(s): hyperlipidemia, diabetes mellitus type 2, osteoarthritis, vitamin D deficiency. History of Any Multi-Drug Resistant Organisms: None Reported Past Surgical History: Hernia Repair, Pacemaker Additional Past Surgical History / Comment(s): Right foot surgery secondary to a crush injury, right hernia repair, colonoscopy about 4 years ago, bilateral cataract surgery, right glaucoma surgery with trabeculoplastyX2. Past Anesthesia/Blood Transfusion Reactions: No Reported Reaction Past Psychological History: No Psychological Hx Reported Smoking Status: Never smoker Past Alcohol Use History: None Reported Past Drug Use History: None Reported - Past Family History Father History Unknown: Yes Family Medical History: CVA/TIA Mother History Unknown: Yes Family Medical History: CVA/TIA Brother(s) Family Medical History: No Reported History Daughter(s) Family Medical History: No Reported History Medications and Allergies Home Medications Medication Instructions Recorded Confirmed Type Lovastatin [Mevacor] 20 mg PO HS 11/12/14 02/24/21 History Aspirin EC [Ecotrin Low Dose] 81 mg PO DAILY 02/24/21 02/24/21 History Cranberry Fruit Extract [Cranberry] 500 mg PO DAILY 02/24/21 02/24/21 History Donepezil [Aricept] 5 mg PO HS 02/24/21 02/24/21 History Ergocalciferol [Vitamin D2 (1250 1,250 mcg PO Q14D 02/24/21 02/24/21 History Mcg = 21153 Iu)] Lisinopril-Hctz 10-12.5 mg 0.5 tab PO DAILY 02/24/21 02/24/21 History [Zestoretic 10-12.5] Manganese B-12 1 tab PO DAILY 02/24/21 02/24/21 History Tamsulosin HCl [Flomax] 0.4 mg PO DAILY 02/24/21 02/24/21 History Vitamin B-12 Gummie 1 tab PO DAILY 02/24/21 02/24/21 History metFORMIN HCL 1,000 mg PO BID 02/24/21 02/24/21 History Dexamethasone [Decadron] 6 mg PO BID #10 tablet 02/25/21 Rx Famotidine [Pepcid] 20 mg PO DAILY #30 tab 02/25/21 Rx Allergies Allergy/AdvReac Type Severity Reaction Status Date / Time No Known Allergies Allergy Verified 02/24/21 10:02 Physical Exam Vitals: Vital Signs Temp Pulse Pulse Resp BP BP Pulse Ox 02/25/21 10:23 98.2 F 110 H 16 143/63 95 02/25/21 08:20 88 133/56 02/25/21 08:00 88 20 02/25/21 04:37 97.6 F 85 20 110/58 94 L 02/24/21 21:00 97.8 F 86 18 133/67 93 L 02/24/21 19:36 16 02/24/21 17:12 97.8 F 93 145/76 93 L 02/24/21 16:35 98 F 87 18 147/83 93 L 02/24/21 16:23 87 18 147/83 93 L 02/24/21 13:10 86 18 147/83 92 L 02/24/21 12:43 80 18 147/89 98 02/24/21 11:25 70 18 131/72 96 Intake and Output 02/24/21 02/25/21 02/25/21 22:59 06:59 14:59 Intake Total 375 Output Total 450 Balance -450 375 Intake: Oral 375 Output: Urine 350 Stool 100 Other: Voiding Method Urinal Urinal # Voids 2 Weight 88.451 kg - Constitutional General appearance: cooperative, mild distress - EENT Eyes: EOMI - Respiratory Respiratory: bilateral: CTA - Cardiovascular Rhythm: regular Heart sounds: normal: S1, S2 - Gastrointestinal General gastrointestinal: distended, soft - Neurologic No noticeable focal neurological deficits - Musculoskeletal Left lower extremity weaker lumbar to right lower extremity. Musculoskeletal: left sided weakness - Psychiatric Psychiatric: A&O x's 3, appropriate affect, intact judgment & insight Lumbar spine and paraspinal muscle tenderness positive. Patient had difficulty assessing lumbar spine range of motion secondary to pain Lumbar facet load test positive SLR positive on the right side SI joint tenderness: Positive on left side Unable to perform other SI joint maneuvers secondary to pain Results Results: Computed tomography scan of the lumbar spine done on 02/24/2021 showed, moderate multilevel spondylitic changes. Disc bulge, and ligamentum flavum thickening contributes to moderate spinal canal stenosis at L3-L4, and mild at L2-L3. Small endplate Schmorl's nodes at L4-L5, and L5-S1. CBC & Chem 7: 02/24/21 10:22 02/24/21 10:22 Labs: Abnormal Lab Results - Last 24 Hours (Table) 02/24/21 02/25/21 Range/Units 12:41 10:30 POC Glucose (mg/dL) 187 H (75-99) mg/dL Urine Ketones 1+ H (Negative) Urine Blood Trace H (Negative) Urine Bacteria Rare H (None) /hpf Assessment and Plan Assessment: Lumbar spondylosis without myelopathy Lumbar degenerative disc disease Lumbar spine stenosis Chronic pain syndrome, and myofascial pain syndrome Sacroiliac joint dysfunction Plan: #1 Diagnoses, prognosis, and multiple treatment options including but not limited to physical therapy, interventional therapy, adjunct medication therapy, narcotic medication, and surgical options were discussed with the patient. And all questions were answered to the patient's satisfaction. #2 treatment plan agreement : Patient was thoroughly discussed regarding the treatment options, alternatives, and importance of exercises as tolerated. Patient clearly understood. #3 Patient was counseled on importance of regular exercise. #4 consultation : Physical therapy # 5 interventional procedures: Lumbar epidural procedure under fluoroscopic guidance discussed with the patient. Patient also discussed regarding sacroiliac joint injection in future if the epidural is not effective . Procedure, complications, alternatives discussed with the patient. #6 medications : Continue oral pain medication as per primary team temporarily at this time to control his acute on chronic pain.. #7 patient recommended to use TENS units. #8 : Thank you for giving and opportunity to participate in patient care. Please contact anesthesia pain service when necessary questions regarding patient care. Patient can follow up [facility] as needed as an outpatient.. Time with Patient: Less than 30 PQRS Measure Charge Sheet Measure #130: Documentation of Current Meds in Medical Chart: Patient's medications documented in chart Measure #226: Tobacco Use: Screen & Cessation Intervention: Pt not a tobacco user Measure #111: Pneumonia Vaccination: Pneumococcal vaccine administered or previously received Measure #47: Advance Care Plan: Advance care planning discussed & documented, pt chose/unable to give Measure #412: Opioid Treatment Agreement: No documentation of signed opioid treatment agreement Measure #408: Opioid Therapy Follow-up Evaluation: Patient had f/u eval minimum every 3 months during opioid therapy Measure #317: Preventitive Care & Scrn High Bld Press & F/U: Pre-hypertensive or hypertensive BP documented, pt will f/u with PCP Measure #128: Body Mass Index (BMI) Screening & Follow-up: BMI documented ABOVE normal parameters - f/u documented Measure #131: Pain Assessment & Follow-up: Pain positive & plan documented Measure #431: Unhealthy Alcohol Use Preventative Care & Scrn: Patient not identified as an unhealthy alcohol user - Pain Location Left Lower Leg Non-Pharmacological Interventions: Environmental Control Pharmacological Interventions: PRN Medication Pain Comment: Pt reporting new onset left ankle/foot/leg pain when attempting to ambulate. Pt states they have nerve damage, but this pain is different. PQRS Narrative: Smoking Status Never smoker Blood Pressure [Left Arm] 143/63 Blood Pressure 147/83 Pain Intensity [Left Lower Leg 10 ] Pain Intensity 0 Pain Scale Used [Left Lower Numeric (1 - 10) Leg] Pain Scale Used Non Verbal Pain Indicator Scale Used Numeric (1 - 10) Home Medications: Ambulatory Orders Lovastatin [Mevacor] 20 mg PO HS 11/12/14 Aspirin EC [Ecotrin Low Dose] 81 mg PO DAILY 02/24/21 Cranberry Fruit Extract [Cranberry] 500 mg PO DAILY 02/24/21 Donepezil [Aricept] 5 mg PO HS 02/24/21 Ergocalciferol [Vitamin D2 (1250 Mcg = 83953 Iu)] 1,250 mcg PO Q14D 02/24/21 Lisinopril-Hctz 10-12.5 mg [Zestoretic 10-12.5] 0.5 tab PO DAILY 02/24/21 Manganese B-12 1 tab PO DAILY 02/24/21 Tamsulosin HCl [Flomax] 0.4 mg PO DAILY 02/24/21 Vitamin B-12 Gummie 1 tab PO DAILY 02/24/21 metFORMIN HCL 1,000 mg PO BID 02/24/21 Dexamethasone [Decadron] 6 mg PO BID #10 tablet 02/25/21 Famotidine [Pepcid] 20 mg PO DAILY #30 tab 02/25/21
[2021-02-26 11:47] VITALS: BP 139/68; PULSE 81
--- NOTE | 2021-02-26 12:23 | P.DS ---
Providers Date of admission: 02/24/21 12:05 Expected date of discharge: 02/26/21 Attending physician: Maricel Lopez MD Consults: 02/24/21 12:05 Consult Physician Urgent Consulting Provider: Jessi Flores Consult Reason/Comments: Severe back pain, sciatica Do you want consulting provider notified?: Yes 02/24/21 12:35 Consult Physician Routine Consulting Provider: Rusty Reece Consult Reason/Comments: possible bladder mass Do you want consulting provider notified?: Yes 02/24/21 12:39 Consult Physician Routine Consulting Provider: Jared Kruger Consult Reason/Comments: steroid injection lumbar Do you want consulting provider notified?: Yes Primary care physician: [facility] Course: HISTORY OF PRESENT ILLNESS This is an 79-year-old male one of Dr. 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 Patient has intermittent nerves pain originating from the back radiating to his thigh but has not been persistent. Patient was in extreme pain 10 out of 10 yesterday evening and decided to come to the ER since she was unable to mobilize or stand without any help. Patient has difficulty rolling in bed due to the extreme pain. Patient has been using cane for the past week. Vitals are stable with a temperature of 98 pulse 86 respiratory rate 18 blood pressure 147/83. Vitals are stable patient's WBC is 5.1 hemoglobin 14.4 sodium 136 potassium 4.2 BUN 19 creatinine 1.03 glucose 150 UA is negative for infection #CT done on 02/24 suggestive of partially visualized mass in the right posterior bladder wall measuring 5.2 and 3 cm which could be suggestive of either severe BPH OR UROTHELIAL neoplasm. Multiple level spondylitic changes disc bulge and ligamentum flavum thickening sec to moderate spinal canal stenosis at L3-L4 and mild at L2-L3 mild small endplate Schmorl's nodes at L4-L5 and L5-S1 which could be acute to subacute along the superior L5 endplate. Mild to moderate neural foraminal stenosis in the mid to lower lumbar spine noted. Patient received Dilaudid, toradol and solumedrol with no improvement. Patient is admitted to help control the pain as it is not controlled with oral medication. We will consult urology, anesthesia group and orthopedic spine to see if any intervention needed to be done. Patient cannot undergo for MRI due to his pacemaker 02/25: The patient has been seen by pain management and is status post L5-S1 epidural steroid injection. He is just returning from procedure at this time. His is at bedside. PT has not evaluated him at this time and we'll plan for evaluation prior to discharge. Patient is to have follow-up with orthopedic spine in 3 weeks. Patient has been seen by Dr. Reece and most likely this is enlargement of the prostate and patient could benefit from cystoscopy to rule out intravesical pathology as an outpatient. Patient will follow-up in the office. 02/26: Patient was evaluated by physical therapy and occupational therapy and recommendations are for subacute rehab. Social work has been involved and patient will be discharged to [facility] today in stable condition. Patient states he continues to have pain in the left lower extremity and low back area. He has been afebrile, heart rate 81, blood pressure 139/68, pulse ox 96% on room air. DISCHARGE DIAGNOSES 1. Acute sacroiliitis with sciatica status post L5-S1 epidural steroid injection. 2. 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 Follow up with Dr. Reeec for cystoscopy. 3. Third degree heart block status post dual-chamber permanent pacemaker. Stable 4. Hyperlipidemia 5. Diabetes mellitus type 2 6. Hypertension 7. BPH 8. Mild dementia 9. COVID-19 testing negative. DISCHARGE PLAN [facility] Impression and plan of care have been directed as dictated by the signing physician. Khushi Navarrete nurse practitioner acting as scribe for signing physic vanessa. Plan - Discharge Summary New Discharge Prescriptions: New Famotidine [Pepcid] 20 mg PO DAILY #30 tab Dexamethasone [Decadron] 6 mg PO BID #10 tablet Continue Lovastatin [Mevacor] 20 mg PO HS Ergocalciferol [Vitamin D2 (1250 Mcg = 63526 Iu)] 1,250 mcg PO Q14D Aspirin EC [Ecotrin Low Dose] 81 mg PO DAILY Donepezil [Aricept] 5 mg PO HS Manganese B-12 1 tab PO DAILY Tamsulosin HCl [Flomax] 0.4 mg PO DAILY Cranberry Fruit Extract [Cranberry] 500 mg PO DAILY Lisinopril-Hctz 10-12.5 mg [Zestoretic 10-12.5] 0.5 tab PO DAILY metFORMIN HCL 1,000 mg PO BID Vitamin B-12 Gummie 1 tab PO DAILY Discontinued Lovastatin [Mevacor] 20 mg PO HS Discharge Medication List Lovastatin [Mevacor] 20 mg PO HS 11/12/14 [History] Aspirin EC [Ecotrin Low Dose] 81 mg PO DAILY 02/24/21 [History] Cranberry Fruit Extract [Cranberry] 500 mg PO DAILY 02/24/21 [History] Donepezil [Aricept] 5 mg PO HS 02/24/21 [History] Ergocalciferol [Vitamin D2 (1250 Mcg = 32522 Iu)] 1,250 mcg PO Q14D 02/24/21 [History] Lisinopril-Hctz 10-12.5 mg [Zestoretic 10-12.5] 0.5 tab PO DAILY 02/24/21 [History] Manganese B-12 1 tab PO DAILY 02/24/21 [History] Tamsulosin HCl [Flomax] 0.4 mg PO DAILY 02/24/21 [History] Vitamin B-12 Gummie 1 tab PO DAILY 02/24/21 [History] metFORMIN HCL 1,000 mg PO BID 02/24/21 [History] Dexamethasone [Decadron] 6 mg PO BID #10 tablet 02/25/21 [Rx] Famotidine [Pepcid] 20 mg PO DAILY #30 tab 02/25/21 [Rx] Follow up Appointment(s)/Referral(s): Jimmy Lara MD [Primary Care Provider] - 03/04/21 10:15 am Nathaniel De Leon PAC [PHYSICIAN FILING CLERK] - 03/18/21 10:00 am ( ) Rusty Reece MD [STAFF PHYSICIAN] - 2 Weeks ( office will call and schedule appt with patient after receiving records Cystoscopy) Discharge/Stand Alone Forms: Anes Pain/[place] Instructions Discharge Disposition: TRANSFER TO SNF/ECF
[2021-02-26] MEDS: LACTATED RINGERS 1,000 ML IV SCH (12:41)
== END 2021-02-26 14:18 | DRG 552 ==
LOC: EC 09:20 → 5NMEDONC 12:05
PROVIDERS: ADMIT Internal Medicine; ATTEND Internal Medicine
PROC: 3E0R3BZ Introduction of Anesthetic Agent into Spinal Canal, Percutaneous Approach (ICD-10-PCS; principal; 2021-02-25 11:30)
PROC: 3E0S3BZ Introduction of Anesthetic Agent into Epidural Space, Percutaneous Approach (ICD-10-PCS; principal; 2021-02-25 11:30)
PROC: 3E0S33Z Introduction of Anti-inflammatory into Epidural Space, Percutaneous Approach (ICD-10-PCS; principal; 2021-02-25 11:30)
DX: M46.1 Sacroiliitis, not elsewhere classified (principal); I44.2 Atrioventricular block, complete; F03.90 Unspecified dementia, unspecified severity, without behavioral disturbance, psychotic disturbance, mood disturbance, and anxiety; E11.9 Type 2 diabetes mellitus without complications; Z20.822 Contact with and (suspected) exposure to COVID-19; M48.07 Spinal stenosis, lumbosacral region; N40.1 Benign prostatic hyperplasia with lower urinary tract symptoms; N39.498 Other specified urinary incontinence; R39.15 Urgency of urination; M48.061 Spinal stenosis, lumbar region without neurogenic claudication; M51.17 Intervertebral disc disorders with radiculopathy, lumbosacral region; M51.16 Intervertebral disc disorders with radiculopathy, lumbar region; M47.26 Other spondylosis with radiculopathy, lumbar region; M53.3 Sacrococcygeal disorders, not elsewhere classified; N32.9 Bladder disorder, unspecified; G89.4 Chronic pain syndrome; M79.18 Myalgia, other site; I10 Essential (primary) hypertension; E78.5 Hyperlipidemia, unspecified; E55.9 Vitamin D deficiency, unspecified; R97.20 Elevated prostate specific antigen [PSA]; H40.9 Unspecified glaucoma; Z79.82 Long term (current) use of aspirin; Z79.84 Long term (current) use of oral hypoglycemic drugs; Z79.899 Other long term (current) drug therapy; Z87.19 Personal history of other diseases of the digestive system; Z98.42 Cataract extraction status, left eye; Z98.41 Cataract extraction status, right eye; Z95.0 Presence of cardiac pacemaker; W19.XXXA Unspecified fall, initial encounter; Z98.890 Other specified postprocedural states; Z82.3 Family history of stroke
CPT/HCPCS: 36415; 62323; 72131; 80053; 81001; 85025; 87635; 96374; 96375; 99285

== ENCOUNTER → 2021-03-19 | Outpatient (CLI) | payer MEDICARE ==
[2021-03-19 14:46] VITALS: BP 147/75; PULSE 91; RESP 18
--- NOTE | 2021-03-19 16:14 | P.PN ---
Subjective Progress Note Date: 03/19/21 Principal diagnosis: Low back pain Mr. Riley is an 85-year-old male presented to clinic for follow-up appointment from an inpatient lumbar epidural steroid injection at L5-S1 on February 25. He reports since that injection he has had significant relief of his pain. However he still has pain in his left calf foot area that had not completely resolved with the initial injection. He reports increase of pain with excessive walking and standing. His pain is better with rest and he also uses topical analgesics such as Aspercreme and Biofreeze. So uses [id number] medication including acetaminophen and ibuprofen. He has an upcoming appointment to get fitted for a brace of his left foot he hasn't consistent issue with left foot drop. He is currently in physical therapy working to improve his strength in the left leg. He denies any bowel or bladder dysfunction, saddle anesthesia, or any other red flag symptoms. Objective - Exam Physical Examinations : -Constitutiona : Cooperative , not in acute distress . -HEENT : nech : supple , no Lymphadenopathy , normal thyroid size . : eyes : no ptosis , no icterus, no photophobia . - neurologic : Cranial nerve II to XII intact , no focal neurological deffecit . -psychatric : alert , oriented X 3 , appropriate affect , intact judgment and insight . -Lymphatic : no Lymphadenopathy . 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 - PQRS measures = - Patient's medications are documented in the chart. -Tobacco use is negative -Patient's has received pneumococcal vaccine. -Advanced care planning discussed, patient not eligible. -Opiate contract not signed. -Pain positive and follow-up visit/procedure is scheduled. -Patient's blood pressure measured [ 147/75 ] , and documented in the record ,and patient will follow up with the primary care. -Patient was not identified as an unhealthy alcohol user Time with Patient: Less than 30
== END ==
LOC: PNWHC3 13:52
PROVIDERS: ATTEND Student in an Organized Health Care Education/Training Program
DX: M47.26 Other spondylosis with radiculopathy, lumbar region (principal)
CPT/HCPCS: 99211

== ENCOUNTER → 2021-08-14 | Outpatient (CLI) | payer MEDICARE ==
--- NOTE | 2021-08-14 10:40 | P.PN ---
Subjective Progress Note Date: 08/14/21 Principal diagnosis: A 86 yr old wheelchair bound male with at side with a history of severe and chronic low back pain secondary to lumbar degenerative disc diseases and lumbar spondylosis with facet arthropathy presents today for evaluation for intractable pain and inability to ambulate. Patient was evaluated on February 2021 with recommendation of MATTHEW L5-S1 of which he did not complete. Approximately one week ago, per at side, patient complained of intractable lower back and left hip pain, 10 out of 10 in intensity and accompanied with inability to ambulate. Patient was discharged with medications and a prescription for imaging of the brain of which he has yet to complete. Pain level is currently at 6 out of 10 in intensity, constant, achy, sore in the tailbone aspect of his lumbar spine with radiation of sharp pain to his left hip. Pain is provoked by standing, walking or any bending. Pain is alleviated with medications, any and all topicals per at side, physical therapy in February 2021, chiropractic treatments in April 2021 which were discontinued due to nerve issues, wheelchair assistance, sleeping on his left side and rest. Patient is currently on Norfco 5/325mg and Ibuprofen. Patient denies any side effects of the medication(s), denies excessive drowsiness or sleepiness, denies suicidal ideation and reports that the current pain medication is helping to control the pain and improve activities of daily living. Patient denies any motor or sensory deficits. Patient denies any fever or night sweats, denies any change in the bowel movements or urination. Physical Examination: -Constitutional: Cooperative. Not in acute distress . -HEENT: Neck is supple. No lymphadenopathy. No thyromegaly. Normal thyroid size. Eyes: No ptosis , no icterus, no photophobia. ENT: No auditory deficits. Normal oropharynx. No Thrush. - Respiratory: Chest clear to auscultations bilaterally. No wheezing. No rhonchi. - Cardiovascular: Regular rate and rhythm. S1 / S2 , no S3 , no S4. - Gastrointestinal: Abdomen soft no tenderness. Bowel sounds positive in all four quadrants. No organomegaly. - Genitourinary: Deferred. - Neurologic: Cranial nerve II to XII intact. No focal neurological deficits. - Psychatric: Alert & oriented x 3. Matching mood & appropriate affect. Judgment and insight intact. - Lymphatic: No Lymphadenopathy. - Musculoskeletal: Cervical spine: Muscle bulk/ tone/ strength in the bilateral upper extremities normal. Facet loading test cervical area positive. Lumbar spine: Motor bulk/ tone/ strength lower extremities , thigh and legs : 5/5 Deep tendon reflexes : Normal Knee Jerk. Normal Ankle Jerk . Vertebral body tenderness to palpation over L5 Lumbar Facet Loading Test positive Straight Leg Raise: positive at 30 degrees right side/ left side Gaenslen's Test positive Sacral spine : Severe tenderness over the Sacroiliac joint: right side / left side Range of motion: Flexion of the lumbar spine <60 degrees Range of motion: Extension of the lumbar spine <20 degrees Gaenslen's Test positive Fabio test: positive right side / left side Assessment and plan: Chronic low back pain secondary to lumbar degenerative disc disease , lumbar spondylosis with facet arthropathy without myelopathy Recommendation of left TF HARISH L5-S1. May need a series of injections, up to 3 with a 6 month period, to obtain optimal pain relief. Denies anticoagula nts use. Admits to medical history of diabetes. Protocol on discontinuation / continuation of medications russ procedure discussed. Chronic and current use of high-risk medication (Opioids). The patient was counseled about risk of opioid use, psychological risk associated with opioids and was orally counseled to not overuse , divert or sell medications. Pt is to store medication in a safe location. The patient is counseled against driving while using narcotic medications and also not to use alcohol or any illicit recreational drugs. Patient verbalized understanding that the lack of compliance will result in failure to renew narcotic prescription(s) as well as possible discharge from the clinic Diagnoses, prognosis and treatment options including but not limited to physical therapy, surgical interventions, interventional therapies and medication management including narcotics and adjuvant medication were discussed. All patient questions answered MAPS reviewed and it was appropriate. Opiate agreement signed today 08/14/21 Prescription refill for Azle 5/325 #60 with no refills. Ibuprofen 600mg #90 with no refills. I have spent 31 minutes on patient care today. Dr Kruger was available by phone for the evaluation of this patient. The time was used to review the medical records including relevant urine studies and Prescription history (MAPs), review of the available imaging, evaluation and examination of the patient, coordination of care with the medical staff and if applicable referring physicians, as well as creation of the medical record PQRS Measure Charge Sheet PQRS Narrative: Smoking Status Never smoker Hx Alcohol Use (MH) No Home Medications: Ambulatory Orders Lovastatin [Mevacor] 20 mg PO HS 11/12/14 Ergocalciferol [Vitamin D2 (1250 Mcg = 69637 Iu)] 1,250 mcg PO Q14D 02/24/21 Lisinopril-Hctz 10-12.5 mg [Zestoretic 10-12.5] 0.5 tab PO DAILY 02/24/21 Tamsulosin HCl [Flomax] 0.4 mg PO DAILY 02/24/21 metFORMIN HCL 1,000 mg PO BID 02/24/21 Famotidine [Pepcid] 20 mg PO DAILY #30 tab 02/25/21 Acetaminophen [Tylenol Arthritis] 650 mg PO BID PRN 03/25/21 Baclofen 5 mg PO BID 03/25/21 HYDROcodone/APAP 5-325MG [Azle 5-325] 1 tab PO Q6HR PRN 03/25/21 Ibuprofen [Advil] 200 mg PO Q8HR PRN 03/25/21 Menthol [Biofreeze] 1 applic TOPICAL DAILY 03/25/21 Trolamine Salicylate/Aloe Vera [Aspercreme 10% Cream] 1 applic TOPICAL DAILY 03/25/21
[2021-08-14 14:03] VITALS: BP 167/74; PULSE 63; RESP 18; TEMP 97.8
== END ==
LOC: PNWHC3 09:32
PROVIDERS: ATTEND Specialist
DX: M51.36 Other intervertebral disc degeneration, lumbar region (principal); M47.816 Spondylosis without myelopathy or radiculopathy, lumbar region; G89.29 Other chronic pain; E11.9 Type 2 diabetes mellitus without complications; Z79.891 Long term (current) use of opiate analgesic; Z79.84 Long term (current) use of oral hypoglycemic drugs
CPT/HCPCS: 99211

== ENCOUNTER → 2021-09-02 | Day surgery (SDC) | payer MEDICARE ==
[2021-09-01 11:41] VITALS: BMI 29.6
[~2021-09-02] MED LIST: DEXAMETHASONE SOD PHOSPHATE 10 MG/ML 1 ML VIAL ONE; IOPAMIDOL M200 10 ML VIAL ONE; IV FLUID CONTINUATION 1,000 ML IV ONE; LACTATED RINGERS 1,000 ML IV SCH; MIDAZOLAM 2 MG/2 ML VIAL ONE; fentaNYL (PF) 50 MCG/ML 2 ML AMP ONE
[2021-09-02 09:16] VITALS: TEMP 98.3
[2021-09-02 09:27] LABS: Glucose,Whole Blood 169 mg/dL (75-99)
--- NOTE | 2021-09-02 09:52 | P.PCN ---
Date of Procedure: 09/02/21 Description of Procedure: PREOPERATIVE DIAGNOSIS: Lumbar radiculopathy left POSTOPERATIVE DIAGNOSIS: Lumbar radiculopathy left PROCEDURE 1. Transforaminal epidural steroid injection under fluoroscopic guidance left L5-S1 2. Lumbar epidurogram IMAGING Fluoroscopy was used, images where saved to the medical record ANESTHESIA: Local with 1% lidocaine 5 ml ; 1 mg of Versed and 50 g of fentanyl PROCEDURE DESCRIPTION / TECHNIQUE: The patient was seen and identified in the preoperative area. Risks, benefits, complications, and alternatives were discussed with the patient. The patient agreed to proceed with the procedure and signed the consent, vital signs were stable prior to the procedure. Patient was taken to the OR and time out was completed. The patient was placed in the prone position on procedure table and a pillow was placed under the abdomen to reduce lumbar lordosis. The lumbosacral area was prepped and draped in the usual sterile fashion. Vital signs were closely monitored during the procedure. Conscious sedation was used. Using oblique fluoroscopy, the chin of the "Ajay dog" at the pedicle and the skin and deeper tissues just below was localized with 1% lidocaine. Subsequently, a 22-gauge 3.5-inch spinal needle was advanced under a tunneled view fluoroscopic guidance just underneath the chin of the "Ajay dog". Under lateral fluoroscopy, the needle was then advanced to the posterior border interforaminal space. After negative aspiration of CSF and blood and with no paresthesias, 1 mL of Omnipaque-240 contrast dye was injected excellent epidurogram. Subsequently, a solution totalling 2ml of dexamethasone and PFNS was injected after negative aspiration (total of 10mg of dexamethasone was used). The needle was removed intact. COMPLICATIONS: None DISPOSITION: The patient was placed in a supine position and transferred to the recovery area in a stable condition for observation. There was no evidence of lower extremity motor or sensory deficit after the procedure. Patient was discharged from the recovery room after meeting discharge criteria. Home di scharge instructions were given to the patient by the staff. The patient was reexamined prior to discharge. Follow up as directed.
[2021-09-02 10:50] VITALS: BP 131/79; PULSE 79; RESP 16
--- NOTE | 2021-09-02 12:09 | FL ---
EXAMINATION TYPE: FL guided pain mgmt statistic DATE OF EXAM: 09/02/2021 FLUOROSCOPY Fluoroscopy time of 7 seconds was used during transforaminal epidural injection in the lumbar spine. 1 image/s document/s the procedure.
== END ==
LOC: ORPAIN 08:48
PROVIDERS: ATTEND Hospitalist
DX: M54.16 Radiculopathy, lumbar region (principal); Z91.09 Other allergy status, other than to drugs and biological substances
CPT/HCPCS: 64483; J2250; J1100; J3010; Q9966

== ENCOUNTER → 2021-09-10 | Outpatient (CLI) | payer MEDICARE ==
[2021-09-10 13:18] VITALS: BP 119/66; PULSE 83; RESP 16; TEMP 98.3
--- NOTE | 2021-09-10 14:03 | P.PN ---
Subjective Progress Note Date: 09/10/21 Principal diagnosis: A 86 yr old wheelchair bound male with at side with a history of severe and chronic low back pain secondary to lumbar degenerative disc diseases and lumbar spondylosis with facet arthropathy presents today for evaluation status post left TF HARISH L5-S1 #1. Patient states he experienced 100% pain relief for 3 days status post procedure. Pain level is currently at 5 out of 10 in intensity, localized to the lower back, dull, achy in character with radiation of pain towards the left hip. Pain is provoked by bending or twisting. Pain is alleviated with medications, topicals, injections, physical therapy integrated with massage of which she is currently an, chiropractic treatments in April 2021, daily home stretching regimen, use of a wheelchair for ambulation, use of a massage,, repositioning and rest. Interventional pain procedures completed include L TFESI L5-S1 x 1 Patient is currently on Sibley, Motrin. Patient denies any side effects of the medication(s), denies excessive drowsiness or sleepiness, denies suicidal ideation and reports that the current pain medication is helping to control the pain and improve activities of daily living. Patient denies any motor or sensory deficits. Patient denies any fever or night sweats, denies any change in the bowel movements or urination. Physical Examination: -Constitutional: Cooperative. Not in acute distress . -HEENT: Neck is supple. No lymphadenopathy. No thyromegaly. Normal thyroid size. Eyes: No ptosis , no icterus, no photophobia. ENT: No auditory deficits. Normal oropharynx. No Thrush. - Respiratory: Chest clear to auscultations bilaterally. No wheezing. No rhonchi. - Cardiovascular: Regular rate and rhythm. S1 / S2 , no S3 , no S4. - Gastrointestinal: Abdomen soft no tenderness. Bowel sounds positive in all four quadrants. No organomegaly. - Genitourinary: Deferred. - Neurologic: Cranial nerve II to XII intact. No focal neurological deficits. - Psychatric: Alert & oriented x 3. Matching mood & appropriate affect. Judgment and insight intact. - Lymphatic: No Lymphadenopathy. - Musculoskeletal: Cervical spine: Muscle bulk/ tone/ strength in the bilateral upper extremities normal. Facet loading test cervical area positive. Lumbar spine: Motor bulk/ tone/ strength lower extremities , thigh and legs : 5/5 Deep tendon reflexes : Normal Knee Jerk. Normal Ankle Jerk . Vertebral body tenderness to palpation over L5 Lumbar Facet Loading Test positive Straight Leg Raise: positive at 30 degrees right side/ left side Gaenslen's Test positive Sacral spine : Severe tenderness over the Sacroiliac joint: right side / left side Range of motion: Flexion of the lumbar spine <60 degrees Range of motion: Extension of the lumbar spine <20 degrees Gaenslen's Test positive Fabio test: positive right side / left side Assessment and plan: Chronic low back pain secondary to lumbar degenerative disc disease , lumbar spondylosis with facet arthropathy without myelopathy Recommendation of physical therapy 3 times a week 4 weeks. Integrated lumbar traction with physical therapy. Patient with disc interested in repeat injections at this time. Patient may return to office on an as-needed basis. All patient questions answered MAPS reviewed and it was appropriate. I have spent 31 minutes on patient care today. Dr Kruger was available by phone for the evaluation of this patient. The time was used to review the medical records including relevant urine studies and Prescription history (MAPs), review of the available imaging, evaluation and examination of the patient, coordination of care with the medical staff and if applicable referring physicians, as well as creation of the medical record Objective - Vital Signs Vital signs: Vital Signs Temp 98.3 F 09/10/21 13:08 Pulse 83 09/10/21 13:08 Resp 16 09/10/21 13:08 BP 119/66 09/10/21 13:08 Pulse Ox 96 09/10/21 13:08 Intake & Output 09/09/21 09/10/21 09/10/21 18:59 06:59 18:59 Weight 87.997 kg PQRS Measure Charge Sheet Mode of Arrival: Wheelchair, Walker - Pain Location Left Lower Hip Non-Pharmacological Interventions: Elevation, Heat, Home Exercise, Ice, Massage Pharmacological Interventions: Epidural, Medication, PRN Medication, Scheduled Medication, Topical Medication PQRS Narrative: Smoking Status Never smoker Blood Pressure 119/66 Scale Used Numeric (1 - 10) Hx Alcohol Use (MH) No Home Medications: Ambulatory Orders Lovastatin [Mevacor] 20 mg PO HS 11/12/14 Ergocalciferol [Vitamin D2 (1250 Mcg = 04875 Iu)] 1,250 mcg PO Q14D 02/24/21 Lisinopril-Hctz 10-12.5 mg [Zestoretic 10-12.5] 0.5 tab PO DAILY 02/24/21 Tamsulosin HCl [Flomax] 0.4 mg PO DAILY 02/24/21 metFORMIN HCL 1,000 mg PO BID 02/24/21 Acetaminophen [Tylenol Arthritis] 650 mg PO BID PRN 03/25/21 Ibuprofen 600 mg PO Q8H PRN 30 Days #90 tab 08/14/21 Aspirin [Adult Low Dose Aspirin EC] 81 mg PO DAILY 09/01/21 Cranberry Tab(Dose Unknown) 1 tab PO BID 09/01/21 Donepezil [Aricept] 5 mg PO HS 09/01/21 Isosorbide Mononitrate [Isosorbide Mononitrate ER] 30 mg PO DAILY 09/01/21 Lidocaine 5% Patch [Lidoderm] 1 patch TOPICAL DAILY PRN 09/01/21
== END ==
LOC: PNWHC3 12:42
PROVIDERS: ATTEND Specialist
DX: G89.29 Other chronic pain (principal); M51.36 Other intervertebral disc degeneration, lumbar region; M47.816 Spondylosis without myelopathy or radiculopathy, lumbar region; Z88.8 Allergy status to other drugs, medicaments and biological substances
CPT/HCPCS: 99211